=== PATIENT | female | born 1985 | race Caucasian/White ===

== ENCOUNTER → 2021-04-30 | Outpatient (CLI) | payer BC ==
[~2021-04-30] VITALS: Ht 167.6 cm; Wt 68.9 kg
[~2021-04-30] MED LIST: LISI20TA18 PO; [UNRECOGNIZED DRUG - OTHER]
--- NOTE | 2021-04-30 10:07 | RAD ---
EXAM: Abdomen sonogram. HISTORY: Nausea. Epigastric pain. TECHNIQUE: Sonographic imaging of the abdomen was performed. COMPARISON: CT dated 04/01/2021. FINDINGS: The liver is normal in size. No focal hepatic lesion is seen. There is a 3 mm polyp or nonm obile gallstone along the gallbladder wall. There is no bladder wall thickening. The common bile duct is normal in caliber. The right kidney is normal in size. There is no hydronephrosis. There is a 1.2 cm simple right renal cyst. The aorta, pancreas and inferior vena cava are partially obscured due to bowel gas. IMPRESSION: 1. No acute sonographic finding. 2. 3 mm gallbladder polyp or nonmobile gallstone. 3. 1.2 cm simple right renal cyst. 4. Partially obscured midline structures due to bowel gas. Electronically signed by: Sunshine Herrmann MD (04/30/2021 10:05 AM) [id number]
--- NOTE | 2021-04-30 12:28 | RAD ---
EXAM: Nuclear hepatobiliary scan. HISTORY: Pain. TECHNIQUE: Following intravenous administration of 5.3 mCi Tc 99m Choletec, anterior images of the ab domen were obtained at five minute intervals through one hour. Subsequently, 8 ounces Ensure drink wa s ingested and additional images to assess gallbladder ejection fraction were obtained. FINDINGS: There is prompt radiotracer uptake by the liver. No focal defect is seen. There is normal e xcretion into the biliary tree. The gallbladder is visualized within 10 minutes and there is free joyce w into the duodenum. The gallbladder ejection fraction is 93 percent. IMPRESSION: High gallbladder ejection fraction of 93 percent. This can be associated with biliary hyp erkinesia. Electronically signed by: Sunshine Herrmann MD (04/30/2021 12:25 PM) [id number]
== END ==
LOC: US 10:10
PROVIDERS: ATTEND Internal Medicine Gastroenterology
DX: N28.1 Cyst of kidney, acquired (principal); R11.0 Nausea
CPT/HCPCS: 76705; 78227; A9537